=== PATIENT | female | born 1960 | race Caucasian/White ===

== ENCOUNTER 2019-05-12 12:43 | Outpatient (CLI) | payer BC ==
--- NOTE | 2019-05-12 14:19 | RAD ---
THREE VIEWS SACRUM AND COCCYX: History Pain. COMPARISON: None. FINDINGS: Sacral alae are preserved. Bony pelvis is intact. No fracture. IMPRESSION: No fracture. POS: OFF
--- NOTE | 2019-05-12 14:21 | RAD ---
ONE VIEW PELVIS: 05/12/19 HISTORY: Pelvic pain. COMPARISON: None. FINDINGS: Sacral ala are intact. Sacroiliac joints are patent and symmetric. Intact bony pelvis. Contour of both femoral heads are maintained and the hip joint spaces are symmetr ic. IMPRESSION: Unremarkable AP pelvic radiograph. POS: OFF
== END 2019-05-12 12:44 | disposition home or self-care (01) ==
LOC: TBSIIMAG 12:43
PROVIDERS: ATTEND Neurological Surgery
DX: R10.2 Pelvic and perineal pain (principal)
CPT/HCPCS: 72170; 72220